=== PATIENT | female | born 1960 | race Caucasian/White ===

== ENCOUNTER 2020-01-31 09:55 | Emergency (ER) | payer MEDICAID, OTHER ==
--- NOTE | 2020-01-31 10:15 | NUR ---
CALLED TO TRIAGE NO ANSWER
--- NOTE | 2020-01-31 10:26 | NUR ---
CALLED TO TRIAGE NO ANSWER.
== END 2020-01-31 10:28 | disposition left against medical advice (07) ==
LOC: ER 10:02
DX: Z53.21 Procedure and treatment not carried out due to patient leaving prior to being seen by health care provider (principal)